=== PATIENT | female | born 1965 | race Hispanic/Latino ===

== ENCOUNTER 2020-05-29 13:33 | Emergency (ER) | payer OTHER ==
[2020-05-29] MEDS ORDERED: Morphine 2 MG/ML SYRINGE ONE ×2 (13:52→14:58)
[2020-05-29] MEDS ORDERED: Morphine 4 MG/ML VIAL ONE ×2 (13:52→14:58)
--- NOTE | 2020-05-29 14:14 | RAD ---
Right forearm 2 views: HISTORY: Injury, right forearm pain FINDINGS: There are angulated fractures involving the shafts of the right radius and ulna. The ulnar fracture i s comminuted. There is a lateral displacement of the distal radial fracture fragment. IMPRESSION: Right radius and ulnar fractures.
[2020-05-29] MEDS ORDERED: CEFAZOLIN 1 GM VIAL ONE (14:18)
[2020-05-29] MEDS ORDERED: Sodium Chloride 0.9% 100 ML ONE (14:18)
[2020-05-29] MEDS ORDERED: Boostrix 0.5 ML (Tdap) VIAL ONE (14:18)
[2020-05-29] MEDS ORDERED: Ondansetron PF 4 MG/2 ML Vial ONE (15:07)
== END 2020-05-29 15:18 | disposition short-term general hospital (02) ==
LOC: NAV ERS 13:33
DX: S52.251A Displaced comminuted fracture of shaft of ulna, right arm, initial encounter for closed fracture (principal); S52.301A Unspecified fracture of shaft of right radius, initial encounter for closed fracture; S52.501A Unspecified fracture of the lower end of right radius, initial encounter for closed fracture; E11.9 Type 2 diabetes mellitus without complications; I10 Essential (primary) hypertension; E78.5 Hyperlipidemia, unspecified; Z79.84 Long term (current) use of oral hypoglycemic drugs; Z79.899 Other long term (current) drug therapy; W20.8XXA Other cause of strike by thrown, projected or falling object, initial encounter
CPT/HCPCS: 29105; 90471; 90715; 96365; 96375; 96376; J0690; J2270; J2405